=== PATIENT | female | born 1980 | race Two or more races ===

== ENCOUNTER → 2025-04-19 | Day surgery (SDC) | payer OTHER | END | disposition home or self-care (01) | LOC: JRADUS-SUR 11:04 | PROVIDERS: ATTEND Physician Assistant | PROC: 07D63ZX Extraction of Left Axillary Lymphatic, Percutaneous Approach, Diagnostic (ICD-10-PCS; principal; 2025-04-19) | DX: N63.32 Unspecified lump in axillary tail of the left breast (principal) | CPT/HCPCS: 19083; 76942-TC; 77065-TC; 87899; 88305-TC; A4648 ==